=== PATIENT | male | born 1985 | race Caucasian/White ===

== ENCOUNTER 2024-07-18 08:35 | Day surgery (SDC) | payer OTHER ==
[~2024-07-18] VITALS: Ht 195.6 cm; Wt 382.4 kg
[2024-07-18 09:20] LABS: HEMATOCRIT 43.1 % (42.0-52.0); HEMOGLOBIN 14.9 g/dl (13.5-17.5); MEAN CORPUSCULAR HEMOGLOBIN 32.7 pg (27.0-33.0); MEAN CORPUSCULAR HGB CONC 34.6 g/dl (32.0-36.5); MEAN CORPUSCULAR VOLUME 94.5 fl (80.0-96.0); PLATELET COUNT, AUTOMATED 160 10^3/uL (150-450); RED BLOOD COUNT 4.56 10^6/uL (4.30-6.10); WHITE BLOOD COUNT 3.9 10^3/uL (4.0-10.0)
[2024-07-18 09:48] LABS: BLOOD UREA NITROGEN 21 MG/DL (9-23); CALCIUM LEVEL 9.7 MG/DL (8.5-10.1); CARBON DIOXIDE LEVEL 31 MMOL/L (20-31); CHLORIDE LEVEL 103 MMOL/L (98-107); CREATININE FOR GFR 0.82 MG/DL (0.70-1.30); GLOMERULAR FILTRATION RATE > 60.0 (>60); GLUCOSE, FASTING 78 MG/DL (60-100); POTASSIUM SERUM 4.3 MMOL/L (3.5-5.1); SODIUM LEVEL 138 MMOL/L (136-145)
[2024-07-18] MEDS ORDERED: ONDANSETRON 4MG 2ML VIAL As Ordered ONE (10:23)
[2024-07-18] MEDS ORDERED: propofoL 200 MG/20 ML VIAL As Ordered ONE (10:23)
[2024-07-18] MEDS ORDERED: fentaNYL 100 MCG/2 ML INJECTION As Ordered ONE (10:23)
[2024-07-18] MEDS ORDERED: LIDOCAINE 2% 100MG/5ML SDV (FOR ANES.) As Ordered ONE (10:23)
[2024-07-18] MEDS ORDERED: MIDAZOLAM INJ 2MG/2ML VIAL As Ordered ONE (10:23)
[2024-07-18] MEDS ORDERED: ACETAMINOPHEN 1000MG/100ML IV BAG As Ordered ONE (10:23)
[2024-07-18] MEDS ORDERED: dexmedeTOMIDine (4MCG/ML)200MCG/50ML BTL (PRECEDEX) As Ordered ONE (11:11)
[2024-07-18] MEDS ORDERED: LIDOCAINE 2% W/EPINEPHRINE 20ML VIAL **PRES FREE As Ordered ONE (11:14)
[2024-07-18] MEDS ORDERED: BACITRACIN OINTMENT 30GM TUBE As Ordered ONE (11:15)
[2024-07-18] MEDS: ceFAZolin SOD 2 GM in IV 1 EA IV ONE (11:41)
[2024-07-18] MEDS: POVIDONE-IODINE 5% OPHTH PREP SOL 30ML As Ordered ONE (12:00)
[2024-07-18 13:19] VITALS: BP 140/72; TEMP 97.9; O2SAT 100
== END 2024-07-18 13:22 | disposition home or self-care (01) ==
LOC: M SDC 08:35
PROVIDERS: ATTEND Plastic Surgery Surgery of the Hand
DX: L91.0 Hypertrophic scar (principal); L73.0 Acne keloid
CPT/HCPCS: 11441; 11443; 12031; 36415; 80048; 85027; 88302; J0131; J0690; J1100; J2250; J2405; J3010

== ENCOUNTER → 2024-07-31 | Outpatient (CLI) | payer OTHER | LOC: EDUNIT# 07-24 09:00 → M PLAIMG 10:16 | PROVIDERS: ATTEND Physician Assistant | DX: R20.2 Paresthesia of skin (principal); G56.22 Lesion of ulnar nerve, left upper limb; R27.8 Other lack of coordination; G56.12 Other lesions of median nerve, left upper limb ==

== ENCOUNTER → 2024-12-20 | Outpatient (REF) | payer OTHER | LOC: M LAB REF 18:06 | PROVIDERS: ATTEND Plastic Surgery Surgery of the Hand | DX: L91.0 Hypertrophic scar (principal) ==

== ENCOUNTER → 2025-05-23 | Outpatient (REF) | payer OTHER | LOC: M LAB REF 17:44 | PROVIDERS: ATTEND Plastic Surgery Surgery of the Hand | DX: L90.5 Scar conditions and fibrosis of skin (principal); L57.8 Other skin changes due to chronic exposure to nonionizing radiation ==